=== PATIENT | female | born 1985 | race Hispanic/Latino ===

== ENCOUNTER 2018-11-09 18:34 | Emergency (ER) | payer OTHER ==
[~2018-11-09] VITALS: Ht 152.4 cm; Wt 71.7 kg
--- OUTSIDE RECORDS SUMMARY | 2018-11-09 18:37 | XMS REPORT ---
Author Author [facility] Address Unknown Phone Unavailable Care Team Providers Care Client Support Analyst Name Role Phone Unavailable Unavailable Payers Payer Name Policy Type Policy Number Effective Date Expiration Date Problems This patient has no known problems. Allergies, Adverse Reactions, Alerts Allergy Name Allergy Type Status Severity Reaction(s) Onset Date Inactive Date Treating Clinician Comments No Known Allergies DA Active U 2014-10-02 00:00:00 Medications This patient has no known medications. Results Test Description Test Time Test Comments Text Results Atomic Results Result Comments - XR CHEST 2 V 2018-10-14 14:26:00 Name: LUDY VARGAS [facility] : 1985 Age/S:33 /F [id number] [facility] Unit#:[id number] [place] [address] Phys: London Sosa MD Dis Date: PHONE #: [phone] Status: REG ER FAX #: [phone] Exam Date: 10/14/2018 Reason: cough EXAMS: CPT CODE: [id number] XR CHEST 2 V 42232 REASON FOR EXAM: cough Exam Order Date: 10/14/2018 1:50 PM Ordering M.D.: London Sosa MD PROCEDURE: - XR CHEST 2 V COMPARISON: FINDINGS: PA and lateral views of the chest show clear lungs. No evidence of consolidation. No evidence of effusion. The heart size is within normal limits. Pulmonary vasculatures are unremarkable. The osseous structures are grossly intact. IMPRESSION: No active disease. E lectronically Signed by Margy Pope on 10/14/2018 at 1426 Reported and signed by: Colton Pope M.D. CC: London Sosa MD Technologist: PINO HUSSEIN, RT(R),CT Trnscrpt Data: 10/14/2018 ([id number]) [email or web address] Orig Print D/T: S: 10/14/2018 ([id number]) PAGE 1 Signed Report URINALYSIS COMPLETE 2018-10-14 14:22:00 UA COLOR (test code=COLU) YELLOW YELLOW UA APPEARANCE (test code=APPU) CLEAR CLEAR UA GLUCOSE DIPSTICK (test code=DGLUU) NORMAL mg/dL NEGATIVE UA BILIRUBIN DIPSTICK (test code=BILU) NEGATIVE mg/dL NEGATIVE UA KETONE DIPSTICK (test code=KETU) 5 (Trace) mg/dL NEGATIVE UA SPECIFIC GRAVITY (test code=SGU) 1.020 1.001-1.035 UA BLOOD DIPSTICK (test code=JOEY) 10 (Trace) Jay/uL NEGATIVE UA PH DIPSTICK (test code=HERMES) 6.0 5.0-8.0 UA PROTEIN DIPSTICK (test code=PROU) 15 (TRACE) mg/dL Neg-15 UA UROBILINIOGEN DIPSTICK (test code=URO) norm mg/dL 0.0-0.2 UA NITRITE DIPSTICK (test code=MILEY) NEGATIVE NEGATIVE UA LEUKOCYTE ESTERASE DIPSTICK (test code=LEUU) 100/uL (2+) uL NEGATIVE UA WBC (test code=WBCU) 0-5 per HPF 0-5 IN SOME URINARY TRACT INFECTIONS THERE MAY NOT BE ENOUGHWBCs IN THE URINE TO TRIGGER AN AUTOMATIC (REFLEX) URINECULTURE. A SEPERATE ORDER FOR URINE CULTURE IS RECOMMENDEDIF THERE IS STRONG SUPPORT FOR A URINARY TRACT INFECTIONCLINICALLY. UA RBC (test code=RBCU) 0-3 per HPF 0-5 UA EPITHELIAL CELLS (test code=EPIU) Few (2-5/hpf) per HPF Few UA BACTERIA (test code=BACU) FEW per HPF NONE UA MUCUS (test code=MUCU) FEW per LPF NONE-FEW Urine Source? Clean CatchUR HCG [id number] 14:22:00* Test Item Value Reference Range Comments UR HCG QUAL (test code=HCGQLU) NEGATIVE This HCGQL test is NOT applicable for MALE patients.Check with nurse about probable order error.If Tumor Marker Test needed, nurse should order test "HCGTU"(Test #550.14009) Urine Source? Clean CatchURINALYSIS [id number] 14:14:00* Test Item Value Reference Range Comments UA COLOR (test code=COLU) YELLOW YELLOW UA APPEARANCE (test code=APPU) CLEAR CLEAR UA GLUCOSE DIPSTICK (test code=DGLUU) NORMAL mg/dL NEGATIVE UA BILIRUBIN DIPSTICK (test code=BILU) NEGATIVE mg/dL NEGATIVE UA KETONE DIPSTICK (test code=KETU) 5 (Trace) mg/dL NEGATIVE UA SPECIFIC GRAVITY (test code=SGU) 1.020 1.001-1.035 UA BLOOD DIPSTICK (test code=JOEY) 10 (Trace) Jay/uL NEGATIVE UA PH DIPSTICK (test code=HERMES) 6.0 5.0-8.0 UA PROTEIN DIPSTICK (test code=PROU) 15 (TRACE) mg/dL Neg-15 UA UROBILINIOGEN DIPSTICK (test code=URO) norm mg/dL 0.0-0.2 UA NITRITE DIPSTICK (test code=MILEY) NEGATIVE NEGATIVE UA LEUKOCYTE ESTERASE DIPSTICK (test code=LEUU) 100/uL (2+) uL NEGATIVE UA WBC (test code=WBCU) per HPF 0-5 Urine Source? Clean CatchUR HCG [id number] 14:14:00* Test Item Value Reference Range Comments UR HCG QUAL (test code=HCGQLU) NEGATIVE This HCGQL test is NOT applicable for MALE patients.Check with nurse about probable order error.If Tumor Marker Test needed, nurse should order test "HCGTU"(Test #[id number]) Urine Source? Clean CatchURINALYSIS [id number] 14:12:00* Test Item Value Reference Range Comments UA COLOR (test code=COLU) YELLOW YELLOW UA APPEARANCE (test code=APPU) CLEAR CLEAR UA GLUCOSE DIPSTICK (test code=DGLUU) NORMAL mg/dL NEGATIVE UA BILIRUBIN DIPSTICK (test code=BILU) NEGATIVE mg/dL NEGATIVE UA KETONE DIPSTICK (test code=KETU) 5 (Trace) mg/dL NEGATIVE UA SPECIFIC GRAVITY (test code=SGU) 1.020 1.001-1.035 UA BLOOD DIPSTICK (test code=JOEY) 10 (Trace) Jay/uL NEGATIVE UA PH DIPSTICK (test code=HERMES) 6.0 5.0-8.0 UA PROTEIN DIPSTICK (test code=PROU) 15 (TRACE) mg/dL Neg-15 UA UROBILINIOGEN DIPSTICK (test code=URO) norm mg/dL 0.0-0.2 UA NITRITE DIPSTICK (test code=MILEY) NEGATIVE NEGATIVE UA LEUKOCYTE ESTERASE DIPSTICK (test code=LEUU) 100/uL (2+) uL NEGATIVE UA WBC (test code=WBCU) per HPF 0-5 Urine Source? Clean CatchUR HCG [id number] 14:12:00* Test Item Value Reference Range Comments UR HCG QUAL (test code=HCGQLU) Urine Source? Clean Catch
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
--- NOTE | 2018-11-09 19:26 | NUR ---
Call placed to [facility], requesting Advocate to come see pt. Spoke with Terra at this time.
[2018-11-09] MEDS ORDERED: AZITHROMYCIN 250 MG TAB PO NR (20:30)
[2018-11-09] MEDS ORDERED: METRONIDAZOLE 500 MG TAB PO NR (20:30)
[2018-11-09] MEDS ORDERED: CEFTRIAXONE SOD 1 GM VIAL IM NR (20:30)
[2018-11-09] MEDS ORDERED: ONDANSETRON HCL 4 MG ORAL DISINTEGRATING TAB PO NR (20:30)
--- NOTE | 2018-11-09 20:30 | NUR ---
Mike Jones, Advocate from [facility] here talking with pt & discussing safety plan. At this time, housing at facility not available for pt.
[2018-11-09] MEDS ORDERED: CEFTRIAXONE SOD 1 GM VIAL IV NR (20:45)
[2018-11-09] MEDS ORDERED: CEFTRIAXONE SOD 1 GM/NS 50 ML 50 ML IV NR (21:00)
--- NOTE | 2018-11-09 21:15 | NUR ---
Spoke with Ephraim Miller, [employer] regarding possible placement for pt d/t safety concerns & inavailability at [facility]. Suggestions for possible drug rehab if pt willing to go voluntarily. Will speak with pt about d/c options.
--- NOTE | 2018-11-09 21:17 | NUR ---
RECEIVED CALL FROM NURSE ABOUT OPTIONS FOR PT, DISCUSSED POSSIBILITY OF DRUG TREATMENT FOR DUAL DIAGNOSIS IF ABLE TO GET PT IN AFTER HOURS AT [facility], ALSO SPOKE ABOUT [facility], AND ALTERNATE OPTIONS. WAS ADVISED THAT PT WAS WANTING TO "JUST GO HOME" ADVISED SHE HAS THE RIGHT AND WE CAN FOLLOW UP WITH A WELL CHECK THROUGH [facility].
[2018-11-09 22:06] LABS: HIV 1&2 AB SCREEN NON-REACTIVE (NONREACTIVE)
[2018-11-10 01:05] LABS: CLARITY,URINE SL CLOUDY (CLEAR); COLOR,URINE YELLOW (YELLOW); KETONES,URINE 3+ (NEGATIVE); LEUKOCYTE ESTERASE ,URINE NEGATIVE (NEGATIVE); NITRITE,URINE NEGATIVE (NEGATIVE); PROTEIN,URINE DIPSTICK NEGATIVE (NEGATIVE)
[2018-11-10 01:06] LABS: BILIRUBIN,URINE NEGATIVE (NEGATIVE); URINE UROBILINOGEN 0.2 mg/dL (0.2 - 1)
[2018-11-10 01:10] LABS: PREGNANCY TEST, URINE NEGATIVE (NEGATIVE)
--- NOTE | 2018-11-10 01:15 | NUR ---
MD & Primary RN informed of findings from [facility]. Understanding verbalized.
[2018-11-10 01:21] LABS: BACTERIA,URINE FEW /HPF; EPITHELIAL CELLS,URINE FEW /LPF; MUCUS,URINE MANY (RARE); RBC,URINE 0-5 /HPF (0-5); WBC,URINE (MAN) 0-5 /HPF (0-5)
--- NOTE | 2018-11-10 01:30 | NUR ---
Call placed to [facility], . Spoke with Jonathan. Informed of need for Officer to berry picker evidence.
--- NOTE | 2018-11-10 02:00 | NUR ---
Officer Navjot Tom here for evidence transport. Officer given SAK & 1 brown paper bag with clothing.
--- NOTE | 2018-11-10 07:00 | NUR ---
ASSUMED CARE AT THIS TIME. PATIENT LAYING IN BED WITH EYES CLOSED. SKIN WARM AND DRY. RESP EVEN AND UNLABORED. NO SIGNS OF ACUTE DISTRESS NOTED AT THIS TIME.
--- NOTE | 2018-11-10 08:12 | NUR ---
RECEIVED CALL PT IS STILL IN ED WAITING ON SW. WILL GO SEE TO DETERMINE IF A REFERRAL MORE THAN WAS ALREADY ADVISED IS NEEDED.
--- NOTE | 2018-11-10 08:38 | NUR ---
PORTILLO TEJADA, PERFORMING [employer] TE[employer]ICIANS AT BEDSIDE PROVIDING RESOURCES FOR PATIENT, PATIENT ANXIOUS AND RAMBLING, UNCOOPERATIVE. REDIRECTED ATTENTION AND GIVEN POSITIVE REASSURANCE.
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
--- NOTE | 2018-11-10 09:21 | NUR ---
PATIENT ANXIOUS,RAMBLING,FLIGHT OF IDEAS, PACING HALLWAY, REDIRECTED TO ER ROOM FOR D/C INSTRUCTIONS.
== END 2018-11-10 10:00 | disposition home or self-care (01) ==
LOC: ER 18:34
DX: T76.21XA Adult sexual abuse, suspected, initial encounter (principal)
CPT/HCPCS: 36415; 81001; 81025; 87110; 87210; 87390; 99284; G0433; G0435; J0696; Q0162